=== PATIENT | male | born 1950 | race Caucasian/White ===

== ENCOUNTER → 2025-02-05 07:38 | Outpatient (CLI) | payer MEDICARE, SELFPAY ==
--- NOTE | 2025-02-05 07:40 | DI.RAD.S_ITS ---
PROCEDURE: XR FINGER LT MIN 2V INDICATIONS: Laceration distal TECHNIQUE: AP hand, 2 views of left 4th finger(s) acquired. COMPARISON: None. FINDINGS: Bones: There are no fracture or other osseous abnormalities Joints: Mild degeneration 1st CMC and all MCP and interphalangeal joints. Soft tissues: Moderate soft tissue swelling over the 4th distal phalanx IMPRESSION: No fracture or posttraumatic change. Mild degeneration Dictated by: Omar Andrews M.D. on 02/06/2025 at 11:53 Approved by: Omar Andrews M.D. on 02/06/2025 at 11:54
== END ==
PROVIDERS: PCP Family Medicine; Referring Provider Nurse Practitioner Family; Visit Provider Nurse Practitioner Family
DX: S61.219A Laceration without foreign body of unspecified finger without damage to nail, initial encounter (principal); M18.12 Unilateral primary osteoarthritis of first carpometacarpal joint, left hand; M19.042 Primary osteoarthritis, left hand; M79.89 Other specified soft tissue disorders
CPT/HCPCS: 73140

== ENCOUNTER 2025-03-23 02:09 | Emergency (ER) | payer MEDICARE, SELFPAY ==
[2025-03-23] VITALS (7 sets, daily range): BP systolic 116–147; BP diastolic 69–84; PULSE 57–62; RESP 16–18; TEMP 36.7; O2SAT 96–99; BMI 30.4
--- NOTE | 2025-03-23 02:29 | ED.MALEGU ---
HPI - Male Genitourinary General Chief complaint: Urogenital-Male Stated complaint: Abdominal Pain, Urinary Symptoms Time Seen by Provider: 03/23/25 02:24 Source: patient Mode of arrival: Ambulatory History of Present Illness HPI Narrative: 74-year-old gentleman history of TURP and azoom surgery for BPH in the remote past in [facility] presents with suprapubic discomfort and difficulty urinating tonight. Patient denies fever, chills, body aches, back pain, diarrhea, or constipation. Other than what is stated 14 point review of systems negative. Related Data Home Medications ?Medication ?Instructions ?Recorded ?Confirmed latanoprost 0.005 % eye drops drp EYE-BOTH 02/04/25 02/13/25 lorazepam 0.5 mg tablet 0.5 mg PO ONCE PM PRN insomnia 02/04/25 03/21/25 Held on 03/21/25. Instructions: used during move zolpidem 5 mg tablet 5 mg PO ONCE PM PRN insomnia 02/04/25 03/21/25 Held on 03/21/25. Instructions: used during move levothyroxine 125 mcg tablet 125 mcg PO 03/21/25 03/21/25 levothyroxine 137 mcg tablet mcg PO 03/21/25 03/21/25 Previous Rx's ?Medication ?Instructions ?Recorded tamsulosin 0.4 mg capsule (Flomax) 0.4 mg PO BEDTIME #30 caps 03/23/25 Allergies Allergy/AdvReac Type Severity Reaction Status Date / Time No Known Drug Allergies Allergy Verified 03/23/25 02:25 Review of Systems Review of Systems ROS Unobtainable: All systems reviewed & are unremarkable except as noted in HPI and below Patient History Social History Smoking Status: Former smoker Smoking Status: Former smoker Exam Narrative Exam Narrative: GENERAL: [74] year old patient appears stated age. Well-developed patient, in mild distress. HEAD: Atraumatic. Normocephalic. EYES: Pupils equal round and reactive. Extraocular motions intact. No scleral icterus. No injection or drainage. NECK: Trachea midline. Non tender CARDIOVASCULAR: Regular rate and rhythm without murmurs, gallops, or rubs. RESPIRATORY: Clear to auscultation. Breath sounds equal bilaterally. No wheezes, rales, or rhonchi. GASTROINTESTINAL: Abdomen soft, non-tender, nondistended. EXTREMITIES: No edema or joint tenderness. BACK: Nontender without deformity or crepitance. No flank tenderness. NEURO: AOx3. SKIN: No rash or erythema of visible areas Initial Vital Signs Initial Vital Signs: Vital Signs Temperature 98.0 F 03/23/25 02:25 Pulse Rate 61 03/23/25 02:25 Respiratory Rate 18 03/23/25 02:25 Blood Pressure 138/84 03/23/25 02:25 Pulse Oximetry 99 03/23/25 02:25 Oxygen Delivery Method Room Air 03/23/25 02:25 Course Vital Signs Vital signs: Vital Signs - 8 hr 03/23/25 02:25 Temperature 98.0 F Pulse Rate 61 Respiratory Rate 18 Blood Pressure 138/84 Pulse Oximetry 99 Oxygen Delivery Method Room Air MDM - Male Genitourinary MDM Narrative Medical decision making narrative: Vital signs, nurse triage note, medication list, previous ER visits, and all imaging studies reviewed. Bladder scan shows urine retention of 600 cc status post Cedillo catheter placement. CT abdomen pelvis showed bladder wall thickening which may be related to cystitis or infection in right bladder diverticulum with bladder calculus present. Ill-defined stranding noted at the root of mesentery with associated prominent yet subcentimeter mesenteric lymph nodes this is a nonspecific finding but can be seen in the setting of mesenteric panniculitis. Prostatic enlargement despite provided clinical history of TURP and questionable prostatic nodularity. Normal white count BUN 29 creatinine 1.12. Differential diagnosis UTI urinary retention, BPH. Will have patient follow up with urologist here tomorrow or early next week and d/c home on flomax rx. Discharge Plan Departure Patient Disposition: Home Clinical Impression: Acute urinary retention Instructions: DI for Urinary Retention in Men Activity Restrictions/Additional Instructions: Return with new or worsening symptoms. Follow up with urologist Dr. Wilder. Call office for appointment. Take medicine as directed. Prescriptions: New tamsulosin [Flomax] 0.4 mg capsule 0.4 mg PO BEDTIME Qty: 30 0RF No Action latanoprost 0.005 % drops EYE-BOTH lorazepam 0.5 mg tablet 0.5 mg PO ONCE PM PRN (Reason: insomnia) zolpidem 5 mg tablet 5 mg PO ONCE PM PRN (Reason: insomnia) levothyroxine 137 mcg tablet PO Patient Comments: managed by endocrinology Rx Instructions: 5 days a week 125, 2 days 1 week 137 levothyroxine 125 mcg tablet 125 mcg PO Patient Comments: Managed by endocrinology Rx Instructions: 5 days a week 125, 2 days 1 week 137 Referrals: Meng Wilder DO [Physician, Urology] - As soon as possible Referral Note: Urinary retention Renae Sow DO [Primary Care Provider, Medical] Stand Alone Forms: Patient Portal/API
--- NOTE | 2025-03-23 02:47 | DI.CT.S_ITS ---
PROCEDURE: CT ABDOMEN PELVIS W CON INDICATIONS: abd pain/urinary retention TECHNIQUE: After the administration of intravenous contrast, axial sections acquired from the lung bases to the pubic symphysis. Coronal and sagittal reformats were performed. For radiation dose reduction, the following was used: automated exposure control, adjustment of mA and/or kV according to patient size. COMPARISON: None. FINDINGS: Image quality: Diagnostic. Lower Chest: No significant findings. ABDOMEN: Liver: No solid mass. Gallbladder: Multiple gallstones are present. No wall thickening. No pericholecystic fluid. Biliary ducts: No biliary dilation. Pancreas: No ductal dilation. Spleen: Size is within normal limits. Adrenal Glands: No adrenal nodules. Kidneys and Ureters: No hydronephrosis. No solid mass. No complex renal cystic lesion which requires follow up. Nonobstructing 3 mm right renal stone. Small left renal cortical cyst. Bilateral ureters are normal in course and caliber. Stomach and Bowel: Normal colonic caliber, without significant wall thickening. Colonic diverticulosis without acute diverticulitis. There is minimal wall thickening and inflammation of the transverse colon which may represent colitis. Normal appendix. No evidence for small bowel obstruction or associated inflammatory changes. Peritoneum: No abnormal intraperitoneal fluid. No free air. Ventral Wall: No significant ventral hernia. Abdominal Nodes: No retroperitoneal or mesenteric adenopathy by size criteria. Vessels: Scattered atherosclerotic calcifications of the abdominal aorta and iliac vessels without aneurysmal dilatation. The inferior vena cava appears patent. PELVIS: Pelvic Organs: Moderate prostatomegaly. The prostate is heterogeneous in appearance and nodular. Multiple coarse prostatic calcifications. Seminal vesicles are also prominent in size. Bladder: There is circumferential urinary bladder wall thickening and mild perivesicular stranding. There is a right sided urinary bladder diverticulum with dependent stones. Urinary bladder is decompressed by Cedillo catheter. Pelvic Nodes: No enlarged lymph nodes. Miscellaneous: Fat containing bilateral inguinal hernias without acute inflammation. Bones: No aggressive osseous abnormality. Visualized osseous structures appear intact without acute fracture or focal destructive lesion. No acute compression fractures of the imaged spine. IMPRESSION: Urinary bladder wall thickening and mild perivesicular stranding. Findings may represent cystitis. No evidence for ascending urinary tract infection. There is a right bladder diverticulum with associated bladder calculus. Minimal circumferential wall thickening of the transverse colon with associated inflammatory changes suggestive of mild colitis either infectious or inflammatory in etiology. Colonic diverticulosis without acute diverticulitis. Moderate prostatomegaly and nodular appearance of the prostate gland. Although patient has had history of a TURP, urological consultation should be considered. Other chronic/non-acute findings as above. No significant discrepancy with the shift foreman radiology preliminary report. However, transverse colitis was added to the impression. Additional findings were discussed with emergency department physician at time of study dictation. Dictated by: Flip Acevedo M.D. on 03/23/2025 at 7:13 Approved by: Flip Acevedo M.D. on 03/23/2025 at 7:27
[2025-03-23 02:53] LABS: Add Manual Diff / Slide Review NO; Hematocrit 36.6 % (41-53); Hemoglobin 13.2 g/dL (13.5-17.5); Lymphocytes Absolute Auto 1200 /uL (1100-4500); Mean Corpuscular HGB Conc 36.0 % (30-36); Mean Corpuscular Hemoglobin 30.5 PG (26-34); Mean Corpuscular Volume 84.7 fL (80-100); Platelet Count 180 X10^3/uL (150-400)
[2025-03-23 03:07] LABS: Alanine Aminotransferase 22 IU/L (<50); Albumin 4.0 g/dL (3.5-5.0); Albumin Globulin Ratio 1.3 (1.0-2.8); Alkaline Phosphatase 44 U/L (38-126); Blood Urea Nitrogen 29 mg/dL (9-20); Calcium 8.7 mg/dL (8.4-10.2); Carbon Dioxide 28 mmol/L (22-32); Chloride 108 mmol/L (98-107); Estimated Glomerular Filt Rate > 60 mL/min (>60); Globulin 3.2 g/dL (1.7-4.1); Glucose 117 mg/dL (70-99); HEMOLYSIS < 15 (0-50); Lipase 150 U/L (23-300); Potassium 4.2 mmol/L (3.4-5.1); Sodium 140 mmol/L (137-145); Total Protein 7.2 g/dL (6.3-8.2)
--- NOTE | 2025-03-23 03:11 | PC.NURSE ---
Pt to imaging via ED stretcher with technician automatic
[2025-03-23] MEDS: TAMSULOSIN 0.4 MG CAPSULE PO (04:27)
== END 2025-03-23 04:37 | disposition home or self-care (01) ==
PROVIDERS: Emergency Provider Family Medicine; PCP Family Medicine
DX: R33.8 Other retention of urine (principal)
CPT/HCPCS: 36415; 51798; 74177; 80053; 81003; 83690; 85025; 99284; Q9967

== ENCOUNTER 2025-03-27 19:44 | Emergency (ER) | payer MEDICARE, SELFPAY ==
[2025-03-27 19:59] VITALS: BP 150/72; PULSE 66; RESP 16; TEMP 36.1; O2SAT 97; BMI 30.4
[2025-03-27 23:38] VITALS: BP 156/74; PULSE 65; O2SAT 99
[2025-03-28 00:39] LABS: Bilirubin Urine UA NEGATIVE (NEGATIVE); Color Urine UA YELLOW; Glucose Urine UA NEGATIVE (Negative); Ketones Urine UA NEGATIVE (NEGATIVE); Leukocyte Esterase Urine UA 1+ (NEGATIVE); Nitrite Urine UA NEGATIVE (Negative); Occult Blood Urine UA 3+ (Negative); Protein Urine UA 2+ (Negative); Specific Gravity Urine UA 1.010 (1.000-1.035); Urobilinogen Urine UA 0.2 E.U./dL (0.2); pH Urine UA 6.0 (4.5-8.0)
[2025-03-28 00:41] LABS: Appearance Urine UA Slightly Cloudy
[2025-03-28 00:47] LABS: Culture Indicated Urine Specimen Cultured
--- NOTE | 2025-03-28 00:56 | PC.NURSE ---
Flushed pt's indwelling cath with 100cc normal saline. No clots identified. [place] tinged. urine sent ot lab for UA/culture. Catheter draining without issuse now, 200cc emptied.
--- NOTE | 2025-03-28 01:00 | ED.GENADULT ---
HPI - General Adult General Chief complaint: Urogenital-Male Stated complaint: CATHETER PROBLEM- pain Time Seen by Provider: 03/27/25 23:57 Source: patient Mode of arrival: Ambulatory History of Present Illness HPI narrative: 74-year-old male with history of previous TURP for BPH about 10 years ago, had urinary retention symptoms seen here , Cedillo catheter placed, which seemed to be working well until last night, when it stopped flowing, increasing suprapubic area discomfort. No fevers or chills. No nausea or vomiting. Not currently taking any antibiotics. No trauma to the tubing recalled. Some dribbling around the catheter site near the area of the penile meatus. Related Data Home Medications ?Medication ?Instructions ?Recorded ?Confirmed latanoprost 0.005 % eye drops drp EYE-BOTH 02/04/25 02/13/25 lorazepam 0.5 mg tablet 0.5 mg PO ONCE PM PRN insomnia 02/04/25 03/21/25 Held on 03/21/25. Instructions: used during move zolpidem 5 mg tablet 5 mg PO ONCE PM PRN insomnia 02/04/25 03/21/25 Held on 03/21/25. Instructions: used during move levothyroxine 125 mcg tablet 125 mcg PO 03/21/25 03/21/25 levothyroxine 137 mcg tablet mcg PO 03/21/25 03/21/25 Previous Rx's ?Medication ?Instructions ?Recorded tamsulosin 0.4 mg capsule (Flomax) 0.4 mg PO BEDTIME #30 caps 03/23/25 cephalexin 500 mg capsule 500 mg PO QID 7 days #28 caps 03/28/25 Allergies Allergy/AdvReac Type Severity Reaction Status Date / Time No Known Drug Allergies Allergy Verified 03/27/25 19:59 Patient History Social History Smoking Status: Never smoker Smoking Status: Never smoker Exam Narrative Exam Narrative: GENERAL: Well-developed patient, in mild distress. HEAD: Atraumatic. Normocephalic. EYES: Pupils equal round and reactive. No scleral icterus. No injection or drainage. ENT: Nose without bleeding, purulent drainage. No craniofacial trauma obvious. Airway patent. NECK: Trachea midline. Non tender CARDIOVASCULAR: Regular rate and rhythm without murmurs, gallops, or rubs. RESPIRATORY: Clear to auscultation. Breath sounds equal bilaterally. No wheezes, rales, or rhonchi. GASTROINTESTINAL: Abdomen soft, non-tender, nondistended. : Cedillo catheter in place, had been flushed by nursing, flowing well, yellow fluid in collection leg bag. EXTREMITIES: No edema or joint tenderness. BACK: Nontender without deformity or crepitance. No flank tenderness. NEURO: AOx3. Motor functions grossly nonfocal. SKIN: No rash or erythema of visible areas Initial Vital Signs Initial Vital Signs: Vital Signs Temperature 97.0 F L 03/27/25 19:59 Pulse Rate 66 03/27/25 19:59 Respiratory Rate 16 03/27/25 19:59 Blood Pressure 150/72 H 03/27/25 19:59 Pulse Oximetry 97 03/27/25 19:59 Oxygen Delivery Method Room Air 03/27/25 19:59 Course Orders Ordered: ED Orders 03/28/25 00:25 Urinalysis and Microscopic Stat Urine Culture Stat Discontinued Medications Cephalexin HCl (Cephalexin 250 Mg Capsule) 500 mg PO NOW ONE Stop: 03/28/25 01:01 Last Admin: 03/28/25 01:09 Dose: 500 mg Documented By: PAOLO Vital Signs Vital signs: Vital Signs - 8 hr 03/27/25 23:38 03/27/25 23:38 03/28/25 01:15 Pulse Rate 65 Respiratory Rate 17 Blood Pressure 156/74 H Pulse Oximetry 99 95 Oxygen Delivery Method Room Air 03/28/25 01:16 Pulse Rate Respiratory Rate Blood Pressure 140/76 Pulse Oximetry Oxygen Delivery Method Medical Decision Making Lab Data Lab results reviewed: Yes I reviewed the patient's lab results. Lab results narrative: Urinalysis suspicious for infection. Urine culture triggered. Labs: Lab Results 03/28/25 Range/Units 00:25 Urine Color Yellow Urine Appearance Slightly cloudy Urine pH 6.0 (4.5-8.0) Ur Specific [place] 1.010 (1.000-1.035) Urine Protein 2+ H (Negative) Urine Glucose (UA) Negative (Negative) g/dL Urine Ketones Negative (NEGATIVE) Urine Occult Blood 3+ H (Negative) Urine Nitrate Negative (Negative) Urine Bilirubin Negative (NEGATIVE) Urine Urobilinogen 0.2 (0.2) E.U./dL Ur Leukocyte Esterase 1+ H (NEGATIVE) Urine RBC 30-100/hpf H (0-5/HPF) Urine WBC 10-30/hpf H (0-5/HPF) Ur Squamous Epith Cells 0-1 /hpf (0-5/HPF) Urine Bacteria Few (2-10) H (None) Ur Culture Indicated? Specimen cultured Vol Urine Centrifuged 10ml (spun) MDM Narrative Medical decision making narrative: 74-year-old male with history of urinary retention, remote TURP procedure, had new Cedillo catheter placed 4 days ago here for urinary retention, not currently on antibiotics, notice catheter seemed to stopped draining, some drainage around the catheter, thought it might need to be flushed. Here for catheter problem. Cedillo catheter flushed by nursing, with resumption of flow, clear urine. No bloody urine. Urinalysis pending. Urinalysis suspicious for infection, urine culture triggered per protocol. We will start oral antibiotic given recent urinary catheterization and suspected UTI. Afebrile, sirs screen negative. No serum studies for now. Oral cephalexin 1st dose now, prescription sent to his pharmacy for further course. Follow up with local urologist as planned. Discharge Plan Departure Patient Disposition: Home Clinical Impression: Urinary tract infection, Cedillo catheter problem Instructions: DI for Urinary Tract Infection (UTI) Activity Restrictions/Additional Instructions: History of remote TURP, recent urinary retention visit here in the emergency department where urinary Cedillo catheter was placed. Catheter was not draining, some flow around the end of the penis. Possible obstructed catheter. Catheter was flushed here in the emergency department, with good flow nonbloody. Urinalysis suspicious for infection. First dose oral antibiotic given in the emergency department, further antibiotic prescription course sent to your pharmacy. Take antibiotics as directed. Drink plenty of fluids. Follow up with local urologist as planned. Return to the earlier to this/nearest emergency department for any change worsening symptoms or any concerns prior. Prescriptions: New cephalexin 500 mg capsule 500 mg PO QID 7 Days Qty: 28 0RF No Action latanoprost 0.005 % drops EYE-BOTH lorazepam 0.5 mg tablet 0.5 mg PO ONCE PM PRN (Reason: insomnia) zolpidem 5 mg tablet 5 mg PO ONCE PM PRN (Reason: insomnia) levothyroxine 137 mcg tablet PO Patient Comments: managed by endocrinology Rx Instructions: 5 days a week 125, 2 days 1 week 137 levothyroxine 125 mcg tablet 125 mcg PO Patient Comments: Managed by endocrinology Rx Instructions: 5 days a week 125, 2 days 1 week 137 tamsulosin [Flomax] 0.4 mg capsule 0.4 mg PO BEDTIME Qty: 30 0RF Referrals: Meng Wilder DO [Physician, Urology] Renae Sow DO [Primary Care Provider, Medical] Stand Alone Forms: Patient Portal/API
[2025-03-28 01:15] VITALS: RESP 17; O2SAT 95
[2025-03-28 01:16] VITALS: BP 140/76
== END 2025-03-28 01:20 | disposition home or self-care (01) ==
PROVIDERS: Emergency Provider Emergency Medicine; PCP Family Medicine
DX: N39.0 Urinary tract infection, site not specified (principal); T83.9XXA Unspecified complication of genitourinary prosthetic device, implant and graft, initial encounter
CPT/HCPCS: 81001; 87077; 87086; 87186; 99283